=== PATIENT | female | born 1940 | race Caucasian/White ===

== ENCOUNTER 2016-09-21 06:41 | Emergency (ER) | payer OTHER ==
[~2016-09-21] VITALS: Ht 158.8 cm; Wt 69.8 kg
[2016-09-21 06:46] VITALS: TEMP 36.7; Ht 158.8 cm; Wt 69.8 kg
--- NOTE | 2016-09-21 07:30 | DIAGNOSTIC IMAGING REPORT ---
CHEST 2 VIEWS ROUTINE CLINICAL HISTORY: Cough for one week. COMPARISON STUDY: Chest radiograph October 01, 2015. FINDINGS: Lung volumes are at the lower limits of normal. There is no pneumothorax or pleural effusion. Cardiac size is normal. Mediastinal contours are normal. Lateral view demonstrates slight increased opacity projecting over the lower lungs. There is no lobar consolidation. IMPRESSION: Bibasilar opacities, most evident on the lateral projection. This is likely related to a hypoventilatory lateral projection and favors atelectasis. An infectious process could appear similar but is considered less likely. Electronically signed by: Mason Tang M.D. 09/21/2016 7:28 AM Dictated Date/Time: 09/21/2016 7:26 AM
[2016-09-21] MEDS ORDERED: AZIT500T PO (07:52)
[2016-09-21] MEDS ORDERED: VNTHFA/IN INH (07:52)
--- NOTE | 2016-09-21 07:54 | EMERGENCY ROOM VISIT NOTE ---
History First contact with patient: 06:49 Chief Complaint: RESPIRATORY PROBLEMS Stated Complaint: SEVERE COUGH AND DIFFICULTY BREATHING History of Present Illness The patient is a 76 year old female who presents to the Emergency Room with complaints of cough 1 week. The patient states at first she thought it was allergies because she was visiting her daughter who has a dog. She went to urgent care 1 week ago for UTI symptoms and at that time she only had a slight cough. She was placed on Keflex for the UTI which she has been taking as directed. She then went back to urgent care. His her cough got worse. She was placed on Tessalon Perles. She states the Tessalon Perles is not helping for the cough. She states her cough is now more congested. She states this morning when she woke up and felt like she couldn't breathe because there was a lot of mucus in her throat. The patient denies any ear pain, fever, chest pain or shortness of breath. Review of Systems 10 system review was performed and was negative unless stated otherwise history of present illness. Past Medical/Surgical History Hysterectomy, cholecystectomy, lumpectomy of the breast Social History Smoking Status: Never Smoker Smokeless Tobacco Use: No Alcohol Use: none Drug Use: none Marital Status: Housing Status: lives with family Occupation Status: retired Allergies Coded Allergies: No Known Allergies (Unverified , 09/21/16) Physical Exam Vital Signs Date Time Temp Pulse Resp B/P (MAP) Pulse Ox O2 Delivery O2 Flow Rate FiO2 09/21/16 06:46 36.7 76 18 117/74 98 Room Air Physical Exam PHYSICAL EXAM: Vital Signs were reviewed: Temperature 36.7, blood pressure 117/ 74, pulse 76, respiratory rate 18 Reviewed Nurse's notes and agree. Oxygen saturation is 98 % on room air which is normal . GENERAL: 76-year-old female appears in no acute distress. MENTAL STATUS: Alert, oriented, coherent. EARS: Canals clear. TMs good light reflex, no erythema or fluid level noted. NOSE: Nasal mucosa with moderate erythema engorgement. PHARYNX: No erythema, no edema noted. No exudate noted. Airway is adequate. NECK: Supple, non-tender. No lymphadenopathy noted. LUNGS: Clear to auscultation without wheezes rales or rhonchi. CARDIAC: Regular rate and rhythm without murmur. SKIN: No rashes noted. Medical Decision & Procedures ER Provider Diagnostic Interpretation: CHEST 2 VIEWS ROUTINE CLINICAL HISTORY: Cough for one week. COMPARISON STUDY: Chest radiograph October 01, 2015. FINDINGS: Lung volumes are at the lower limits of normal. There is no pneumothorax or pleural effusion. Cardiac size is normal. Mediastinal contours are normal. Lateral view demonstrates slight increased opacity projecting over the lower lungs. There is no lobar consolidation. IMPRESSION: Bibasilar opacities, most evident on the lateral projection. This is likely related to a hypoventilatory lateral projection and favors atelectasis. An infectious process could appear similar but is considered less likely. Electronically signed by: aMson Tagn M.D. 09/21/2016 7:28 AM Dictated Date/Time: 09/21/2016 7:26 AM ED Course The patient was evaluated. Chest x-ray was ordered and interpreted by the radiologist and myself as above with bibasilar findings consistent with either atelectasis or possibly pneumonia. Due to the patient's history and physical presentation I feel this is most likely pneumonia. The patient was independently evaluated by Dr Scott who agrees with treatment plan. The patient was informed of the findings. The patient was discharged home in stable condition.. Medical Decision Differential diagnosis include URI, allergic rhinitis, bronchitis, pneumonia Impression Primary Impression: Pneumonia Departure Information Dispostion Home / Self-Care Condition GOOD Prescriptions Azithromycin (ZITHROMAX) 500 Mg Tab 1 TAB PO DAILY for 5 Days, #5 TAB Prov: Jessica Thompson PA-C 09/21/16 Albuterol Hfa (VENTOLIN HFA) 200 Puffs/81595 Mcg Aers 2 PUFFS INH QID for 5 Days, #1 INHALER Prov: Jessica Thompson PA-C 09/21/16 Referrals No Doctor, Assigned (PCP) Forms HOME CARE DOCUMENTATION FORM, IMPORTANT VISIT INFORMATION, WORK / SCHOOL INSTRUCTIONS Patient Instructions My [facility], Pneumonia Additional Instructions Continue current medications as prescribed. Take Zithromax daily as prescribed. Use Ventolin HFA inhaler as directed. 2 puffs every 4 hours while awake for 5 days. Also recommend [id number] Mucinex (guaifenesin) as directed on the label for 5 days. If symptoms persist or worsen, recommend follow up with your family doctor otherwise recommend follow-up with your family doctor in one week for recheck. Problem Qualifiers Primary Impression: Pneumonia Pneumonia type: due to unspecified organism Laterality: bilateral
--- NOTE | 2016-09-21 07:54 | EMERGENCY ROOM VISIT NOTE ---
ED Visit Note First contact with patient: 06:49 This Patient was discussed with the physician college sports assistant, Naomie Thompson PA-C. The pertinent historical and physical exam findings were confirmed. I agree with the studies ordered and with the interpretations of these studies. I agree with the disposition and care plan.
[2016-09-21 08:13] VITALS: BP 125/71; PULSE 58; O2SAT 98
== END 2016-09-21 08:21 | disposition home or self-care (01) ==
LOC: C.EDB 06:42
DX: J18.9 Pneumonia, unspecified organism (principal); Z90.710 Acquired absence of both cervix and uterus

== ENCOUNTER → 2016-12-07 | Outpatient (CLI) | payer OTHER ==
[~2016-12-07] MED LIST: AZIT500T PO
--- NOTE | 2016-12-07 15:52 | MAMMOGRAPHY REPORT ---
BILATERAL DIGITAL SCREENING MAMMOGRAM WITH CAD: 12/07/2016 CLINICAL HISTORY: Routine screening. Patient has no complaints. TECHNIQUE: Bilateral CC and MLO views were obtained. Current study was also evaluated with a Comput er Aided Detection (CAD) system. COMPARISON: Comparison is made to exams dated: 12/06/2015 mammogram, 11/27/2014 mammogram - [facility], 10/02/2013 mammogram, 09/26/2012 mammogram, and 10/22/2011 mammogram - [facility] [address]. BREAST COMPOSITION: There are scattered areas of fibroglandular density in both breasts. FINDINGS: There are mild vascular calcifications and benign-appearing punctate microcalcifications i n the breasts. No new suspicious mass, architectural distortion or cluster of microcalcifications is seen. IMPRESSION: ACR BI-RADS CATEGORY 2: BENIGN There is no mammographic evidence of malignancy. A 1 year screening mammogram is recommended. The pa tient will receive written notification of the results. Approximately 10% of breast cancers are not detected with mammography. A negative mammographic report should not delay biopsy if a clinically suggestive mass is present. Majo Peraza M.D. ay/:12/07/2016 15:42:09 [employer]: Jaz THOMPSON(Jacquelyn)(Elias)([place]), [facility] letter sent: Normal 1/2 BI-RADS Code: ACR BI-RADS Category 2: Benign
== END | disposition home or self-care (01) ==
LOC: C.MAMM 12:08
PROVIDERS: ATTEND Family Medicine
DX: Z12.31 Encounter for screening mammogram for malignant neoplasm of breast (principal)